=== PATIENT | female | born 1995 | race Caucasian/White ===

== ENCOUNTER 2017-08-12 13:44 | Emergency (ER) | payer OTHER ==
[~2017-08-12 13:44] MED LIST: CEPH500C3 PO; Z.0.NO CURRENT MEDS
[2017-08-12 14:15] VITALS: BP 145/70; PULSE 92; RESP 18; TEMP 98.6; O2SAT 99
[2017-08-12 15:01] LABS: AUTOMATED NEUTROPHIL # 4.7 TH/MM3 (1.8-7.7); BASOPHIL % 0.3 % (0.0-2.0); EOSINOPHIL % 0.4 % (0.0-4.0); HEMATOCRIT 39.3 % (35.0-46.0); HEMOGLOBIN 13.4 GM/DL (11.6-15.3); LYMPH % 28.9 % (9.0-44.0); LYMPHOCYTE # 2.1 TH/MM3 (1.0-4.8); MEAN CELL VOLUME 90.7 FL (80.0-100.0); MEAN CORPUSCULAR HEMOGLOBIN 30.8 PG (27.0-34.0); MEAN PLATELET VOLUME 8.9 FL (7.0-11.0); MONO % 4.9 % (0.0-8.0); MONOCYTE # 0.3 TH/MM3 (0-0.9); NEUT % 65.5 % (16.0-70.0); PLATELET COUNT 239 TH/MM3 (150-450); RED BLOOD COUNT 4.34 MIL/MM3 (4.00-5.30); RED CELL DISTRIBUTION WIDTH 12.7 % (11.6-17.2); WHITE BLOOD COUNT 7.1 TH/MM3 (4.0-11.0)
[2017-08-12 15:02] LABS: BACTERIA, URINE RARE /hpf; BILIRUBIN, URINE NEG (NEG); BLOOD, URINE NEG (NEG); GLUCOSE,URINE NEG (NEG); KETONE, URINE NEG (NEG); NITRITE,URINE NEG (NEG); SQUAMOUS EPITHELIAL CELL URINE 1 /hpf (0-5); URINE COLOR LIGHT-YELLOW (YELLW/STRAW); URINE LEUKOCYTE ESTERASE NEG (NEG)
[2017-08-12 15:15] LABS: INTERNATIONAL NORMALIZED RATIO 1.1 RATIO; PROTHROMBIN TIME - PATIENT 10.9 SEC (9.8-11.6)
[2017-08-12 15:16] LABS: ALBUMIN 4.2 GM/DL (3.4-5.0); AST (GOT) 24 U/L (15-37); BICARBONATE 27.9 MEQ/L (21.0-32.0); BLOOD UREA NITROGEN 12 MG/DL (7-18); CALCIUM 9.2 MG/DL (8.5-10.1); CHLORIDE 105 MEQ/L (98-107); CREATININE 0.59 MG/DL (0.50-1.00); GLOMERULAR FILTRATION RATE 127 ML/MIN (>89); GLUCOSE,RANDOM 91 MG/DL (74-106); SODIUM (NA) 141 MEQ/L (136-145)
[2017-08-12 15:19] LABS: ALKALINE PHOSPHATASE 69 U/L (45-117); ALT (GPT) 19 U/L (10-53); TOTAL BILIRUBIN ADULT 0.6 MG/DL (0.2-1.0); TOTAL PROTEIN 7.9 GM/DL (6.4-8.2)
[2017-08-12] MEDS ORDERED: SODIUM CHLOR 0.9% 1000 ML INJ 1,000 ML IV ONE (17:17)
[2017-08-12] MEDS ORDERED: LORazepam 2 MG/ML VIAL IV PUSH ONE (17:30)
--- NOTE | 2017-08-12 17:49 | RADRPT ---
EXAM DATE/TIME: 08/12/2017 17:27 [facility] COMPARISON: No previous studies available for comparison. INDICATIONS : Short of breath and dizziness. MEDICAL HISTORY : None. SURGICAL HISTORY : None. ENCOUNTER: Initial ACUITY: 1 day PAIN SCORE: 0/10 LOCATION: Bilateral chest FINDINGS: A single view of the chest demonstrates the lungs to be symmetrically aerated without evidence of mas s, infiltrate or effusion. The cardiomediastinal contours are unremarkable. Osseous structures are intact. CONCLUSION: No acute disease. Broderick Kaufman MD on August 12, 2017 at 17:46 Board Certified Radiologist. This report was verified electronically.
--- NOTE | 2017-08-12 17:54 | PD ---
HPI Chief Complaint: Cold / Flu Symptoms Time Seen by Provider: 16:58 Travel History International Travel<30 days: No Contact w/Intl Traveler<30days: No Traveled to known affect area: No History of Present Illness HPI 22-year-old female arrives to the ER with complaint of lightheadedness for about 3 days. She also describes right arm pressure from the wrist to about the elbow. She describes a weakness sensation involving the total body. She denies loss of consciousness. She reports a sensation of falling at times when she is lying in bed followed by jerking generally. She reports some dyspnea on exertion. She reports undergoing treatment for strep throat yesterday following the diagnosis of the same. She reports compliance with Effexor which was started in May, about 3-1/2 months prior as well as an NSAID for chronic back pain. She also notes noncompliance with oral iron iron which she takes due to iron deficiency anemia. PFSH Past Medical History Diminished Hearing: No Immunizations Current: Yes ?: Unknown LMP: 07/20/2017 Social History Alcohol Use: No Tobacco Use: No Substance Use: No Allergies-Medications (Allergen,Severity, Reaction): Coded Allergies: No Known Allergies (Unverified , 11/18/11) Reported Meds & Prescriptions Reported Meds & Active Scripts Active Keflex (Cephalexin Monohydrate) 500 Mg Cap 500 Mg PO Q8 Reported No Current Meds (Miscellaneous Medication) Misc Review of Systems Except as stated in HPI: all other systems reviewed are Neg General / Constitutional: No: Fever Eyes: No: Diploplia, Blurred Vision, Photophobia HENT: Positive: Lightheadedness, Sore Throat, No: Headaches, Vertigo Cardiovascular: Positive: Dyspnea on exertion, No: Chest Pain or Discomfort, Palpitations, Irregular Rhythm, Tachycardia, Diaphoresis, Syncope Respiratory: No: Cough Physical Exam Narrative GENERAL: 22-year-old female pleasant well-nourished and well no acute distress speaking full sentences Vital Signs Date Time Temp Pulse Resp B/P (MAP) Pulse Ox O2 Delivery O2 Flow Rate FiO2 08/12/17 14:15 98.6 92 18 145/70 (95) 99 SKIN: Warm and dry. HEAD: Atraumatic. Normocephalic. EYES: Pupils equal and round. No scleral icterus. No injection or drainage. ENT: No nasal bleeding or discharge. Mucous membranes pink and moist. NECK: Trachea midline. No JVD. CARDIOVASCULAR: Regular rate and rhythm. RESPIRATORY: No accessory muscle use. Clear to auscultation. Breath sounds equal bilaterally. GASTROINTESTINAL: Abdomen soft, non-tender, nondistended. Hepatic and splenic margins not palpable. MUSCULOSKELETAL: Extremities without clubbing, cyanosis, or edema. No obvious deformities. NEUROLOGICAL: Cranial nerves II through XII are normal. The patient is awake and alert and answers questions appropriately. Cerebellar function is normal. Speech memory mentation normal. Motor function is normal in all 4 extremities 5 /5. Occasional tremor-like activity is observed in the right upper extremity. PSYCHIATRIC: Appropriate mood and affect; insight and judgment normal. Data Data Last Documented VS Vital Signs Date Time Temp Pulse Resp B/P (MAP) Pulse Ox O2 Delivery O2 Flow Rate FiO2 08/12/17 18:43 08/12/17 18:22 83 87 100 08/12/17 14:15 98.6 18 99 Orders Orders Complete Blood Count With Diff (08/12/17 14:18) Comprehensive Metabolic Panel (08/12/17 14:18) Coag Profile (08/12/17 14:18) Urinalysis - C+S If Indicated (08/12/17 14:18) Ed Urine Pregnancytest Poc (08/12/17 14:18) Electrocardiogram (08/12/17 17:17) Ed Urine Pregnancytest Poc (08/12/17 17:17) Chest, Single Ap (08/12/17 17:17) Ct Brain W/O Iv Contrast(Rout) (08/12/17 17:17) Iv Access Insert/Monitor (08/12/17 17:17) Sodium Chlor 0.9% 1000 Ml Inj (Ns 1000 M (08/12/17 17:17) Lorazepam Inj (Ativan Inj) (08/12/17 17:30) Orthostatic Vital Signs (08/12/17 17:57) Ed Discharge Order (08/12/17 18:35) Labs Laboratory Tests Test 08/12/17 14:37 White Blood Count 7.1 TH/MM3 Red Blood Count 4.34 MIL/MM3 Hemoglobin 13.4 GM/DL Hematocrit 39.3 % Mean Corpuscular Volume 90.7 FL Mean Corpuscular Hemoglobin 30.8 PG Mean Corpuscular Hemoglobin Concent 34.0 % Red Cell Distribution Width 12.7 % Platelet Count 239 TH/MM3 Mean Platelet Volume 8.9 FL Neutrophils (%) (Auto) 65.5 % Lymphocytes (%) (Auto) 28.9 % Monocytes (%) (Auto) 4.9 % Eosinophils (%) (Auto) 0.4 % Basophils (%) (Auto) 0.3 % Neutrophils # (Auto) 4.7 TH/MM3 Lymphocytes # (Auto) 2.1 TH/MM3 Monocytes # (Auto) 0.3 TH/MM3 Eosinophils # (Auto) 0.0 TH/MM3 Basophils # (Auto) 0.0 TH/MM3 CBC Comment DIFF FINAL Differential Comment Prothrombin Time 10.9 SEC Prothromb Time International Ratio 1.1 RATIO Activated Partial Thromboplast Time 26.5 SEC Urine Color LIGHT-YELLOW Urine Turbidity CLEAR Urine pH 7.0 Urine Specific [place] 1.008 Urine Protein NEG mg/dL Urine Glucose (UA) NEG mg/dL Urine Ketones NEG mg/dL Urine Occult Blood NEG Urine Nitrite NEG Urine Bilirubin NEG Urine Urobilinogen LESS THAN 2.0 MG/DL Urine Leukocyte Esterase NEG Urine WBC LESS THAN 1 /hpf Urine Squamous Epithelial Cells 1 /hpf Urine Bacteria RARE /hpf Microscopic Urinalysis Comment CULT NOT INDICATED Blood Urea Nitrogen 12 MG/DL Creatinine 0.59 MG/DL Random Glucose 91 MG/DL Total Protein 7.9 GM/DL Albumin 4.2 GM/DL Calcium Level 9.2 MG/DL Alkaline Phosphatase 69 U/L Aspartate Amino Transf (AST/SGOT) 24 U/L Alanine Aminotransferase (ALT/SGPT) 19 U/L Total Bilirubin 0.6 MG/DL Sodium Level 141 MEQ/L Potassium Level 3.7 MEQ/L Chloride Level 105 MEQ/L Carbon Dioxide Level 27.9 MEQ/L Anion Gap 8 MEQ/L Estimat Glomerular Filtration Rate 127 ML/MIN [facility] Medical Decision Making Medical Screen Exam Complete: Yes Emergency Medical Condition: Yes Medical Record Reviewed: Yes Differential Diagnosis Medication side effect, intracranial lesion, metabolic disarray, anxiety, arrhythmia, anemia, substance abuse Narrative Course CBC & BMP Diagram 08/12/17 14:37 Total Protein 7.9, Albumin 4.2, Calcium Level 9.2, Alkaline Phosphatase 69, Aspartate Amino Transf (AST/SGOT) 24, Alanine Aminotransferase (ALT/SGPT) 19, Total Bilirubin 0.6 EKG shows sinus rhythm with a rate 84 normal axis intervals no preexcitation The patient is resting comfortably and feels better, is alert and in no distress. The patients results and examination findings were discussed. The repeat examination is unremarkable and benign. The history, exam, diagnostic testing, and current condition do not suggest any significant pathology to warrant further testing, continued ED treatment, admission, or surgical evaluation at this point. The vital signs have been stable. The patient does not have uncontrollable pain, intractable vomiting, or other significant symptoms. The patient's condition is stable and appropriate for discharge. The patient will pursue further outpatient evaluation with a primary care physician or other designated or consulting physician as indicated in the discharge instructions. The patient expressed understanding and was agreeable with this plan. Diagnosis Primary Impression: Lightheadedness Additional Impressions: Tremor Medication side effects Referrals: Primary Care Physician 2 days Med/Other Pt SpecificInfo: No Change to Meds Disposition: 01 DISCHARGE HOME Condition: Stable Arslan Patten MD Aug 12, 2017 17:54
--- NOTE | 2017-08-12 18:11 | RADRPT ---
EXAM DATE/TIME: 08/12/2017 18:05 [facility] COMPARISON: No previous studies available for comparison. INDICATIONS : Dizziness and right upper extremity weakness for two days. RADIATION DOSE: 51.82 CTDIvol (mGy) MEDICAL HISTORY : None SURGICAL HISTORY : None. ENCOUNTER: Initial ACUITY: 1 day PAIN SCALE: 0/10 LOCATION: Bilateral head TECHNIQUE: Multiple contiguous axial images were obtained of the head. Using automated exposure control and adj ustment of the mA and/or kV according to patient size, radiation dose was kept as low as reasonably a chievable to obtain optimal diagnostic quality images. DICOM format image data is available electro nically for review and comparison. FINDINGS: CEREBRUM: The ventricles are normal for age. No evidence of midline shift, mass lesion, hemorrhage or acute in farction. No extra-axial fluid collections are seen. POSTERIOR FOSSA: The cerebellum and brainstem are intact. The 4th ventricle is midline. The cerebellopontine angle i s unremarkable. EXTRACRANIAL: The visualized portion of the orbits is intact. SKULL: The calvaria is intact. No evidence of skull fracture. CONCLUSION: Negative noncontrast CT Broderick Kaufman MD on August 12, 2017 at 18:08 Board Certified Radiologist. This report was verified electronically.
[2017-08-12 18:22] VITALS: BP_SYST 109; BP_SYST 117; BP_SYST 127; BP_DIAS 65; BP_DIAS 77
--- NOTE | 2017-08-13 15:45 | EKG ---
Date Performed: 08/12/2017 Time Performed: 17:38:02 PTAGE: 22 years EKG: Sinus rhythm NORMAL ECG Since the PREVIOUS TRACING , no significant change noted PREVIOUS TRACIN1995 13.06 DOCTOR: Petar Goins Interpretating Date/Time 08/13/2017 15:41:20
== END 2017-08-12 18:55 | disposition home or self-care (01) ==
LOC: NED 13:44 → NEPD 18:55
DX: R42 Dizziness and giddiness (principal); R25.1 Tremor, unspecified; R53.1 Weakness; D50.9 Iron deficiency anemia, unspecified; G89.29 Other chronic pain; M54.9 Dorsalgia, unspecified
CPT/HCPCS: 70450; 71045; 80053; 81001; 84703; 85025; 85610; 85730; 93005; 96374; 99285; J2060; J7030